=== PATIENT | female | born 1970 | race Caucasian/White ===

== ENCOUNTER 2023-02-05 09:19 | Emergency (ER) | payer OTHER ==
[~2023-02-05] VITALS: Ht 160 cm; Wt 111.6 kg
[~2023-02-05 09:19] MED LIST: ESTRADIOL1 MG PO; LISINOPRIL10 MG; MYRBETRIQ50 MG PO; TRAZODONE HCL50 MG PO
[2023-02-05 15:09] VITALS: BP 186/99
== END 2023-02-05 15:09 | disposition home or self-care (01) ==
LOC: ED 09:19
DX: I10 Essential (primary) hypertension (principal); Z88.2 Allergy status to sulfonamides; Z88.0 Allergy status to penicillin; Z79.899 Other long term (current) drug therapy
CPT/HCPCS: 36415; 80053; 85025; 99283

== ENCOUNTER 2024-09-02 07:03 | Emergency (ER) | payer OTHER ==
[~2024-09-02] VITALS: Ht 160 cm; Wt 118.8 kg
[2024-09-02] MEDS ORDERED: LISINOPRIL-HCT1 EAC2 PO (07:09)
[2024-09-02] MEDS ORDERED: TOLTERODINE TART4 MG PO (07:09)
[2024-09-02] MEDS ORDERED: DULOXETINE HCL60 MG PO (07:10)
[2024-09-02] MEDS ORDERED: TRAZODONE HCL150 MG PO (07:10)
[2024-09-02 07:37] LABS: BASOPHILS 0.2 % (0-2); EOSINOPHILS 0.1 % (0-6); HEMATOCRIT 37.4 % (35.0-50.0); HEMOGLOBIN 12.7 g/dL (12.0-18.0); LYMPHOCYTES 14.9 % (24-44); MCH 28.7 (27-36); MCV 84.4 fl (81-99); NEUTROPHILS 76.8 % (39-80); PLATELET COUNT 86 K/uL (140-440); RBC 4.44 M/ul (4.3-5.7); RDW 14.3 (10.5-15.0)
[2024-09-02] MEDS ORDERED: ALBUTEROL/IPRATROPIUM 3 ML NEB INH PRN (07:45)
[2024-09-02 07:55] LABS: ALBUMIN 2.9 g/dL (3.4-5.0); ALBUMIN/GLOBULIN RATIO 0.73 (1.1-2.4); ANION GAP 10.7 (7-21); BILIRUBIN, TOTAL 0.5 mg/dL (0.2-1.0); CALCIUM 9.3 mg/dL (8.5-10.1); CREATININE, SERUM 1.2 mg/dL (0.55-1.02); MAGNESIUM 1.9 mg/dL (1.8-2.4); POTASSIUM 3.7 mmol/L (3.5-5.1); PROTEIN, TOTAL 6.9 g/dL (6.4-8.2)
[2024-09-02 07:56] LABS: CORONAVIRUS COVID-19 AG NEGATIVE (NEGATIVE); INFLUENZA A AG NEGATIVE (NEGATIVE); INFLUENZA B AG NEGATIVE (NEGATIVE)
[2024-09-02] MEDS ORDERED: DEXAMETHASONE SOD PHOS 10 MG/ML VIAL PO ONE (08:00)
[2024-09-02] MEDS ORDERED: guaiFENesin 600 MG TABCR PO ONE (08:00)
[2024-09-02] MEDS ORDERED: BENZONATATE100 MG PO (08:49)
[2024-09-02] MEDS ORDERED: VENTOLIN HFA18 GM INH (08:49)
[2024-09-02 09:04] VITALS: BP 165/83
== END 2024-09-02 09:05 | disposition home or self-care (01) ==
LOC: ED 07:03
PROVIDERS: Emergency Medicine
DX: J04.0 Acute laryngitis (principal); I10 Essential (primary) hypertension; Z88.2 Allergy status to sulfonamides; Z88.0 Allergy status to penicillin; Z79.899 Other long term (current) drug therapy
CPT/HCPCS: 36415; 71045; 80053; 83735; 84484; 85025; 94640; 94667; 99285-25; J1100